=== PATIENT | born 1995 ===

== ENCOUNTER → 2018-06-02 | Outpatient (REF) ==
[~2018-06-02] MED LIST: BARIUM SULFATE 176 GM BTL PO ONE; BARIUM SULFATE 340 GM POWD ONE
--- NOTE | 2018-06-02 11:08 | RADIOLOGY IMAGING REPORT ---
FACILITY: [facility] PATIENT NAME: Joann Hazel : 1995 MR: [id number] V: [id number] EXAM DATE: ORDERING PHYSICIAN: ANGELINA SPENCE TECHNOLOGIST: Location: [facility] [place] Patient: Joann Hazel : 1995 Visit/Account:[id number] Date of Sevice: 06/02/2018 Limited abdominal ultrasound of the right upper quadrant Indication: Nausea and vomiting , Comparison: None available Findings Liver is normal in size, contour, and echotexture and measures 13.6 cm in length. There is normal hep atopedal portal venous flow. Gallbladder wall thickness is 2.4 mm with no evidence of shadowing stone or sludge within the gallbla dder lumen. Negative sonographic Hicks's sign reported by the technologist. Common duct measures 3.5 mm in maximum diameter with no evidence of shadowing stone. The head and proximal body of the pancreas is unremarkable. The distal body and tail is obscured by o verlying bowel gas. Abdominal aorta and IVC are patent and unremarkable. The right kidney is normal in size, contour, and echotexture and measures 9.8 cm in length. IMPRESSION: 1. Unremarkable appearance of the gallbladder and no acute abnormality on this ultrasound of the righ t upper quadrant region. Report Dictated By: Juan Abdi at 06/02/2018 10:56 AM Report E-Signed By: Juan Abdi at 06/02/2018 11:03 AM WSN:[email or web address]
--- NOTE | 2018-06-02 15:54 | RADIOLOGY IMAGING REPORT ---
FACILITY: [facility] PATIENT NAME: Joann Hazel : 1995 MR: [id number] V: [id number] EXAM DATE: ORDERING PHYSICIAN: ANGELINA SPENCE TECHNOLOGIST: Location: [facility] Patient: Joann Hazel : 1995 Visit/Account:[id number] Date of Sevice: 06/02/2018 Exam type: UPPER GI SERIES W/O AIR History: Abdomen pain x1 month, vomiting, diarrhea, symptoms mostly after fatty foods Comparison: None. Findings: Double contrast upper GI series was performed with thick and thin barium and air contrast. There is no demonstration of gastroesophageal reflux or esophageal narrowing. No abnormality of the stomach d uodenal bulb or duodenal C-loop was seen. The fluoroscopy dose area product was 472.98 micro-Andino pe r meter squared IMPRESSION: 1. Unremarkable upper GI series Report Dictated By: Joy Sanchez MD at 06/02/2018 3:48 PM Report E-Signed By: Joy Sanchez MD at 06/02/2018 3:50 PM WSN:[email or web address]
== END ==
LOC: RAD 00:55
PROVIDERS: ATTEND Internal Medicine
DX: R10.9 Unspecified abdominal pain (principal); R19.7 Diarrhea, unspecified; R11.2 Nausea with vomiting, unspecified
CPT/HCPCS: 74240; 76705